=== PATIENT | male | born 2000 | race Caucasian/White ===

== ENCOUNTER 2021-08-06 17:54 | Emergency (ER) | payer SELFPAY ==
[~2021-08-06] VITALS: Ht 182.9 cm; Wt 59.0 kg
[2021-08-06 21:00] LABS: BASO # 0.1 x10^3/uL (0.0-0.2); BASO % 1 % (0-3); EOS # 0.1 x10^3/uL (0.0-0.7); EOS % 2 % (0-3); HEMATOCRIT 42.4 % (39.0-53.0); HEMOGLOBIN 14.2 g/dL (13.0-17.5); LYMPH # 2.6 x10^3/uL (1.0-4.8); LYMPH % 36 % (24-48); MEAN CORPUSCULAR HEMOGLOBIN 32 pg (25-35); MEAN CORPUSCULAR HGB CONC 34 g/dL (31-37); MEAN CORPUSCULAR VOLUME 94 fL (79-100); MONO # 0.6 x10^3/uL (0.0-1.1); MONO % 9 % (0-9); NEUT # 3.7 x10^3uL (1.8-7.7); NEUT % 52 % (31-73); PLATELET COUNT 195 x10^3/uL (140-400); RED CELL DISTRIBUTION WIDTH 13.6 % (11.5-14.5)
[2021-08-06 21:02] LABS: CALCIUM 8.5 mg/dL (8.5-10.1); GFR 92.6; POTASSIUM 4.2 mmol/L (3.5-5.1)
[2021-08-06 21:08] LABS: ALBUMIN 3.9 g/dL (3.4-5.0); ALBUMIN/GLOBULIN RATIO 1.3 (1.0-1.7); TOTAL BILIRUBIN 0.1 mg/dL (0.2-1.0); TOTAL PROTEIN 6.8 g/dL (6.4-8.2)
--- NOTE | 2021-08-06 21:20 | PHYS DOC ---
Past History Past Medical History: Bipolar Additional Past Medical Histor: substance use disorder (JOSE A MCCORD) Past Medical History: Bipolar, Schizophrenia (MALLY CASTANON MD) Past Surgical History: Other Additional Past Surgical Histo: right arm (JOSE A MCCORD) Smoking: Cigarettes Alcohol Use: Occasionally Drug Use: Marijuana, Methamphetamine (JOSE A MCCORD) General Adult EDM: Chief Complaint: MEDICAL CLEARANCE HPI: HPI: Patient is a 21 year old male with history of bipolar disorder who presents with his mother for a medical screening exam prior to admission to psychiatric facility. Patient is uncooperative and will not answer my questions, however his mother at bedside aids in providing history. Mom reports that the patient attempted suicide 2 days ago by cutting his wrist. He was evaluated in [place] , but signed out AMA. At that time, patient's mother picked him up and took him home with her. At this time, patient denies SI and HI and states he wants to "be left the hell alone." Mom reports that she has been in contact with Margie at [facility], who informed her they are holding a bed for him should he need admission. The only physical complaint that the patient has at this time is a reportedly broken hand from punching a metal pole on 07/17/2021. Patient was never evaluated or had x-rays taken. Previously patient was on Depakote, risperidone and one other medication the name of which they are unaware. (JOSE A MCCORD) Review of Systems: Review of Systems: 12 systems reviewed. ROS negative except as mentioned in HPI. (JOSE A MCCORD) Allergies: Allergies: Allergies Coded Allergies Type Severity Reaction Last Updated Verified No Known Drug Allergies 08/06/21 No (JOSE A MCCORD) Physical Exam: PE: Constitutional: Well developed, well nourished, no acute distress, non-toxic appearance. HENT: Normocephalic, atraumatic, bilateral external ears normal, oropharynx moist, no oral exudates, nose normal. Eyes: PERRLA, EOMI, conjunctiva normal, no discharge. Neck: Normal range of motion, no tenderness, supple, no stridor. Cardiovascular: Heart rate regular rhythm, no murmur. Lungs & Thorax: Bilateral breath sounds clear to auscultation. Abdomen: Soft, no tenderness, no masses, no pulsatile masses. Skin: Warm, dry, no erythema, no rash. Back: No tenderness, no CVA tenderness. Neurologic: Alert and oriented X 3, normal motor function, normal sensory function, no focal deficits noted. [] Psychologic: Affect agitated, poor judgment, mood "I want to be left the hell alone." (JOSE A MCCORD) Current Patient Data: Labs: Laboratory Tests Test 08/06/21 20:20 08/06/21 20:25 SARS-CoV-2 Antigen (Rapid) Negative (NEGATIVE) White Blood Count 7.0 x10^3/uL (4.0-11.0) Red Blood Count 4.50 x10^6/uL (4.30-5.70) Hemoglobin 14.2 g/dL (13.0-17.5) Hematocrit 42.4 % (39.0-53.0) Mean Corpuscular Volume 94 fL (79-100) Mean Corpuscular Hemoglobin 32 pg (25-35) Mean Corpuscular Hemoglobin Concent 34 g/dL (31-37) Red Cell Distribution Width 13.6 % (11.5-14.5) Platelet Count 195 x10^3/uL (140-400) Neutrophils (%) (Auto) 52 % (31-73) Lymphocytes (%) (Auto) 36 % (24-48) Monocytes (%) (Auto) 9 % (0-9) Eosinophils (%) (Auto) 2 % (0-3) Basophils (%) (Auto) 1 % (0-3) Neutrophils # (Auto) 3.7 x10^3uL (1.8-7.7) Lymphocytes # (Auto) 2.6 x10^3/uL (1.0-4.8) Monocytes # (Auto) 0.6 x10^3/uL (0.0-1.1) Eosinophils # (Auto) 0.1 x10^3/uL (0.0-0.7) Basophils # (Auto) 0.1 x10^3/uL (0.0-0.2) Sodium Level 138 mmol/L (136-145) Potassium Level 4.2 mmol/L (3.5-5.1) Chloride Level 104 mmol/L (98-107) Carbon Dioxide Level 27 mmol/L (21-32) Anion Gap 7 (6-14) Blood Urea Nitrogen 11 mg/dL (8-26) Creatinine 1.0 mg/dL (0.7-1.3) Estimated GFR (Cockcroft-Gault) 92.6 BUN/Creatinine Ratio 11 (6-20) Glucose Level 89 mg/dL (70-99) Calcium Level 8.5 mg/dL (8.5-10.1) Total Bilirubin 0.1 mg/dL (0.2-1.0) Aspartate Amino Transf (AST/SGOT) 19 U/L (15-37) Alanine Aminotransferase (ALT/SGPT) 31 U/L (16-63) Alkaline Phosphatase 68 U/L (46-116) Total Protein 6.8 g/dL (6.4-8.2) Albumin 3.9 g/dL (3.4-5.0) Albumin/Globulin Ratio 1.3 (1.0-1.7) Lipase 133 U/L (73-393) Vital Signs: Vital Signs Date Time Temp Pulse Resp B/P (MAP) Pulse Ox O2 Delivery O2 Flow Rate FiO2 08/06/21 19:30 97.9 71 20 114/63 (80) 100 Room Air (JOSE A MCCORD) Heart Score: C/O Chest Pain: No (JOSE A MCCORD) Course & Med Decision Making: Course & Med Decision Making Pertinent Labs and Imaging studies reviewed. (See chart for details) Been with the psychiatric assessment team has spoken with the patient regarding psych evaluation and admission. He did confirm with [facility] that a bed is being held for the patient. Eventually, we were able to obtain labs from the patient. Acceptance at [facility] is pending lab work. Patient care transferred to Dr. Castanon while awaiting urinalysis and UDS results. (JOSE A MCCORD) Course & Med Decision Making See notes prior shift change. Pt. see PAT report Pt. not accepted at [facility]. Pt.to be discharged home- follow up with [facility] as needed for Crisis Observation. Impression: 1. Medically Stable 2. Drug Screen + Meth, Marijuana and Tob. use 3. Suicidal ideation 4. History of bipolar disorder (MALLY CASTANON MD) Dragon Disclaimer: Dragon Disclaimer: This electronic medical record was generated, in whole or in part, using a voice recognition dictation system. (JOSE A MCCORD) Departure Departure: Referrals: PCP,NO (PCP) Attending Signature Attending Signature I have participated in the care of this patient and I have reviewed and agree with all pertinent clinical information above including history, exam, and recommendations. (MALLY CASTANON MD) Dragon Disclaimer This chart was dictated in whole or in part using Voice Recognition software in a busy, high-work load, and often noisy Emergency Department environment. It may contain unintended and wholly unrecognized errors or omissions. (MALLY CASTANON MD) JOSE A MCCORD Aug 06, 2021 21:20 MALLY CASTANON MD Aug 06, 2021 22:13
[2021-08-06 21:58] LABS: AMPHETAMINE/METHAMPHETAMINE POS (NEG); BARBITURATES NEG (NEG); BENZODIAZEPINES NEG (NEG); CANNABINOIDS POS (NEG); COCAINE NEG (NEG); METHADONE NEG (NEG); OPIATES NEG (NEG); PHENCYCLIDINE NEG (NEG)
[2021-08-06 22:01] LABS: BACTERIA,URINE 0 /HPF (0-FEW); BILIRUBIN,URINE NEG (NEG); CLARITY,URINE CLEAR; COLOR,URINE YELLOW; GLUCOSE,URINE NEG (NEG); NITRITE,URINE NEG (NEG); RBC,URINE 0 /HPF (0-2); UROBILINOGEN,URINE 0.2 mg/dL (0.2 mg/dL); WBC,URINE 0 /HPF (0-4)
[2021-08-07 08:25] VITALS: BP 113/58
== END 2021-08-07 08:35 | disposition home or self-care (01) ==
LOC: ER 17:54
DX: R45.851 Suicidal ideations (principal); F15.10 Other stimulant abuse, uncomplicated; F12.10 Cannabis abuse, uncomplicated; F31.9 Bipolar disorder, unspecified; F17.210 Nicotine dependence, cigarettes, uncomplicated; Z20.822 Contact with and (suspected) exposure to COVID-19
CPT/HCPCS: 80053; 80307; 81001; 83690; 85025; 87426; 99285; C9803; U0003